=== PATIENT | male | born 1955 | race African-American/Black ===

== ENCOUNTER 2020-11-14 12:27 | Observation (INO) ==
[2020-11-14] MEDS ORDERED: hydrALAZINE 20 MG/1 ML VIAL IV STA (13:19)
[2020-11-14] MEDS ORDERED: ALBUTEROL/IPRATROPIUM 3 ML NEB RESP TX STA (13:19)
[2020-11-14 13:43] LABS: Albumin 3.7 G/DL (3.4-5.0); Bilirubin,Total 0.4 MG/DL (0.2-1.0); Calcium 9.3 MG/DL (8.5-10.1); Osmolality,Calculated 301.8 MOS/KG (273-304); Potassium 4.8 MMOL/L (3.5-5.1); Total Protein 7.3 G/DL (6.4-8.2)
[2020-11-14 14:14] LABS: Basophils % 0.4 % (0.0-0.8); Eosinophils # 0.5 10*3/uL (0.0-0.87); Eosinophils % 7.6 % (0.00-10.9); Hematocrit 32.3 VOL% (42.0-52.0); Hemoglobin 9.8 GM/DL (14.0-18.0); Immature Granulocytes % 0.1 %; Immature Granulocytes Absolute 0.01 #; Lymphocytes # 0.9 10*3/uL (1.4-4.0); Lymphocytes % 12.6 % (21.2-54.2); Mean Corpuscular HGB Conc 30.3 GM/DL (32-36); Mean Corpuscular Volume 94.7 FL (87-102); Mean Platelet Volume 11.3 FL (9.6-12.0); Monocytes % 6.1 % (1.7-12.7); Neutrophils % 73.2 % (38.7-73.9); Platelet Count 169 T/CUMM (130-400); Red Blood Count 3.41 MC/CUMM (3.8-5.5); Red Cell Distribution Width 16.7 % (9.3-17.3); White Blood Count 6.8 T/CUMM (4-12)
[2020-11-14 14:23] LABS: INR 1.1; PT Patient Result 11.8 SECS (10.5-12.0)
[2020-11-14 14:35] LABS: Partial Thromboplastin Time 30.6 SECS (23.9-33.8)
[2020-11-14] MEDS ORDERED: ACETAMINOPHEN 325 MG TABLET PO PRN (15:44)
[2020-11-14] MEDS ORDERED: ONDANSETRON 4 MG/2 ML VIAL IV PRN (15:44)
[2020-11-14] MEDS ORDERED: DEXTROSE 50% 25 GM/50 ML VIAL IV PRN (15:44)
[2020-11-14] MEDS ORDERED: GLUCAGON 1 MG VIAL IM PRN (15:44)
[2020-11-14] MEDS ORDERED: HEPARIN 10,000 UNIT/10 ML VIAL IV SCH (19:00)
[2020-11-14 20:51] LABS: Hepatitis B Core IgM Quant < 0.05 Index; Hepatitis B Surface Ag Quant < 0.10 Index; Hepatitis B Surface Ag Result Non-Reactive (NonReactive); Hepatitis C Virus Ab Quant 0.02 Index; Hepatitis C Virus Ab Result Non-Reactive (NonReactive)
[2020-11-14] MEDS: HEPARIN 5,000 UNIT/1 ML VIAL SUBCUT SCH ×2 (21:46→23:27)
[2020-11-14] MEDS: METOPROLOL TARTRATE 50 MG TABLET PO ONE ×2 (21:46→22:20)
[2020-11-14] MEDS: amLODIPine 10 MG TABLET PO ONE ×2 (21:46→22:20)
[2020-11-15] MEDS: hydrALAZINE 20 MG/1 ML VIAL IV PRN ×3 (01:16→21:28)
[2020-11-15 05:24] LABS: Basophils % 0.5 % (0.0-0.8); Eosinophils # 0.4 10*3/uL (0.0-0.87); Eosinophils % 4.4 % (0.00-10.9); Hematocrit 35.2 VOL% (42.0-52.0); Hemoglobin 10.7 GM/DL (14.0-18.0); Immature Granulocytes % 0.4 %; Immature Granulocytes Absolute 0.03 #; Lymphocytes % 12.7 % (21.2-54.2); Mean Corpuscular HGB Conc 30.4 GM/DL (32-36); Mean Corpuscular Volume 95.7 FL (87-102); Mean Platelet Volume 11.2 FL (9.6-12.0); Monocytes % 6.7 % (1.7-12.7); Neutrophils % 75.3 % (38.7-73.9); Platelet Count 169 T/CUMM (130-400); Red Blood Count 3.68 MC/CUMM (3.8-5.5); Red Cell Distribution Width 16.7 % (9.3-17.3); White Blood Count 8.1 T/CUMM (4-12)
[2020-11-15 05:39] LABS: Alanine Aminotransferase < 9 U/L (16-61); Albumin 3.8 G/DL (3.4-5.0); Alkaline Phosphatase 137 U/L (45-117); Aspartate Amino Transferase 11 U/L (0-37); Blood Urea Nitrogen 42 MG/DL (7-18); Calcium 9.6 MG/DL (8.5-10.1); Carbon Dioxide 28 MMOL/L (21-32); Estimated Glom Filtration Rate 7 ML/MIN; Glucose 96 MG/DL (74-106); Osmolality,Calculated 289.4 MOS/KG (273-304); Potassium 4.9 MMOL/L (3.5-5.1); Sodium 140 MMOL/L (136-145); Total Protein 8.2 G/DL (6.4-8.2)
[2020-11-15] MEDS: HEPARIN 5,000 UNIT/1 ML VIAL SUBCUT SCH ×3 (08:00→23:28)
[2020-11-15] MEDS: amLODIPine 10 MG TABLET PO SCH (14:28)
[2020-11-15] MEDS: METOPROLOL SUCCINATE XL 50 MG TABLET PO SCH (14:28)
[2020-11-15] MEDS: PANTOPRAZOLE 40 MG TABLET PO SCH (14:28)
[2020-11-16 05:50] LABS: Basophils % 0.7 % (0.0-0.8); Eosinophils # 0.5 10*3/uL (0.0-0.87); Eosinophils % 8.5 % (0.00-10.9); Hematocrit 35.1 VOL% (42.0-52.0); Hemoglobin 10.6 GM/DL (14.0-18.0); Immature Granulocytes % 0.3 %; Immature Granulocytes Absolute 0.02 #; Lymphocytes # 1.1 10*3/uL (1.4-4.0); Lymphocytes % 18.7 % (21.2-54.2); Mean Corpuscular HGB Conc 30.2 GM/DL (32-36); Mean Platelet Volume 11.4 FL (9.6-12.0); Neutrophils % 61.8 % (38.7-73.9); Platelet Count 169 T/CUMM (130-400); Red Blood Count 3.62 MC/CUMM (3.8-5.5); Red Cell Distribution Width 16.6 % (9.3-17.3)
[2020-11-16 06:10] LABS: Calcium 9.2 MG/DL (8.5-10.1); Osmolality,Calculated 282.4 MOS/KG (273-304); Potassium 4.7 MMOL/L (3.5-5.1)
[2020-11-16] MEDS: HEPARIN 5,000 UNIT/1 ML VIAL SUBCUT SCH (08:58)
[2020-11-16] MEDS: METOPROLOL SUCCINATE XL 50 MG TABLET PO SCH (08:58)
[2020-11-16] MEDS: amLODIPine 10 MG TABLET PO SCH (08:58)
[2020-11-16] MEDS: PANTOPRAZOLE 40 MG TABLET PO SCH (09:06)
[2020-11-16 11:45] VITALS: BP 170/55
== END 2020-11-16 16:31 | disposition home or self-care (01) ==
LOC: N.EDINP 12:27 → N.ED 12:27 → SUATTDRO 15:44 → N.EDINP 17:29 → N.5E 20:22
PROVIDERS: ADMIT Internal Medicine; ATTEND Internal Medicine